=== PATIENT | female | born 1995 | race Caucasian/White ===

== ENCOUNTER 2017-01-20 05:38 | Inpatient (IN) | payer MEDICARE, MEDICAID ==
[2017-01-20] MEDS ORDERED: Acetaminophen TAB* 325 MG PO ONE (06:47)
[2017-01-20 06:52] LABS: Hematocrit 45 % (35-47); Hemoglobin 15.2 g/dl (12.0-16.0); Mean Corpuscular HGB Conc 34 g/dl (31-36); Mean Corpuscular Hemoglobin 33 pg (27-31); Mean Corpuscular Volume 97 fL (80-97); Mean Platelet Volume 8 um3 (7.4-10.4); Red Cell Distribution Width 14 % (10.5-15); White Blood Count 10.6 10^3/ul (3.5-10.8)
--- NOTE | 2017-01-20 06:52 | ED ---
collin Chin Timothy, scribed for Jeremy Ayala MD on 01/20/17 at 0646 . Syncope/Near Syncope - HPI Summary HPI Summary: Marissa Higgins is a 21 yo female presenting to [facility] with 30 second episodes of falls x 5, nausea/vomiting, and struck head per her mother at 0215. Pt's mother describes possible absence seizures with fever. Pt has a Hx of fainting episodes , most recently 1.5 years ago. Pt is not in any current pain. Her MHx includes hypothyroidism, GERD, catatonia, insomnia, downs syndrome, tetrology of Fallot, heart surgs, ENT surgs, hearing aids, glasses, dyskinesia. Her PCP is Dr. Aguilar in [place], [place]. - History Of Current Complaint Chief Complaint: EDGeneral Time Seen by Provider: 01/20/17 06:18 Hx Obtained From: Patient Onset/Duration: Sudden Onset, Lasting Hours Timing: Intermittent Episode Lasting - 30 seconds Context: Witnessed Activity At Onset: At Rest Associated Head Trauma: No Aggravating Factor(s): Nothing Alleviating Factor(s): Nothing Associated Signs And Symptoms: Head Trauma (Recent), Vomiting - Allergies/Home Medications Allergies/Adverse Reactions: Allergies Allergy/AdvReac Type Severity Reaction Status Date / Time Erythromycin [From Pediazole] Allergy Unknown Verified 01/20/17 05:59 Reaction Details Sulfisoxazole Allergy Unknown Verified 01/20/17 05:59 [From Pediazole] Reaction Details Home Medications: Home Medications Aripiprazole 2 mg PO DAILY 01/24/17 [History Confirmed 01/24/17] Fluticasone Propionate (Nasal) 50 mcg BOTH NARES DAILY 01/24/17 [History Confirmed 01/24/17] Levothyroxine Sodium 100 mcg PO DAILY 01/24/17 [History Confirmed 01/24/17] Melatonin (NF) 3 mg PO BEDTIME 01/24/17 [History Confirmed 01/24/17] Omeprazole CAP* 20 mg PO BID 01/24/17 [History Confirmed 01/24/17] Trazodone HCl 100 mg PO BEDTIME 01/24/17 [History Confirmed 01/24/17] Vitamin D TAB* 2,000 units PO DAILY 01/24/17 [History Confirmed 01/24/17] PMH/Surg Hx/FS Hx/Imm Hx Endocrine/Hematology History: Reports: Hx Thyroid Disease - hypo GI History: Reports: Hx Gastroesophageal Reflux Disease Infectious Disease History: Yes Infectious Disease History: Denies: Traveled Outside the [place] in Last 30 Days - Additional Comments History Additional Comments: catatonia, insomnia, downs syndrome, tetrology of fallot Review of Systems Positive: Fever Eyes: Negative ENT: Negative Cardiovascular: Negative Respiratory: Negative Positive: Vomiting, Nausea Genitourinary: Negative Positive: Other - head trauma Skin: Negative Positive: Syncope Psychological: Normal All Other Systems Reviewed And Are Negative: Yes Physical Exam Triage Information Reviewed: Yes Vital Signs On Initial Exam: Initial Vitals Temp Pulse Resp BP Pulse Ox 102 F 108 20 87/51 96 01/20/17 06:00 01/20/17 06:00 01/20/17 06:00 01/20/17 06:00 01/20/17 06:00 Vital Signs Reviewed: Yes Appearance: Positive: Well-Appearing, No Pain Distress Skin: Positive: Warm Head/Face: Positive: Normal Head/Face Inspection Eyes: Positive: EOMI, FAY Neck: Positive: Supple Respiratory/Lung Sounds: Positive: Breath Sounds Present Cardiovascular: Positive: RRR Abdomen Description: Positive: Nontender, Soft Bowel Sounds: Positive: Present Musculoskeletal: Positive: Strength/ROM Intact Neurological: Positive: Sensory/Motor Intact Psychiatric: Positive: Affect/Mood Appropriate Diagnostics - Vital Signs Vital Signs Temp Pulse Resp BP Pulse Ox 01/20/17 06:00 102 F 108 20 87/51 96 - Laboratory Result Diagrams: 01/24/17 10:09 01/24/17 10:09 Lab Statement: Any lab studies that have been ordered have been reviewed, and results considered in the medical decision making process. - EKG 0600 Cardiac Rate: NL EKG Rhythm: Sinus Rhythm EKG Interpretation: NSR @ 102 BPM. RBBB. Course/Dx Assessment/Plan: Marissa Higgins is a 21 yo female suffering from 5 30 second syncopal episodes with fever, falls, nausea, and vomiting since 214 this morning. She will be signed out to Dr. Baca for further Tx. - Diagnoses Provider Diagnoses: Community acquired pneumonia, Syncope, Hypoxemia, PNEUMONIA,HYPOTENSION - Physician Notifications Instructed by Provider To: Admit As Inpatient Discharge - Discharge Plan Condition: Fair Disposition: ADMITTED TO [facility] Discharge Disposition Comment: sign out to Dr. Baca The documentation as recorded by the scribcollin hernandez Timothy accurately reflects the service I personally performed and the decisions made by me, Jeremy Ayala MD.
[2017-01-20 07:09] LABS: Albumin 3.8 g/dL (3.2-5.2); BUN/Creatinine Ratio 24.2 (8-20); Calcium 8.7 mg/dL (8.6-10.3); EGFR African American 89.4 (>60); EGFR Non-African American 69.5 (>60); Magnesium 1.7 mg/dL (1.9-2.7); Potassium 3.6 mmol/L (3.5-5.0); Total Bilirubin 0.7 mg/dL (0.2-1.0); Total Protein 7.8 g/dL (6.4-8.9)
[2017-01-20 07:18] LABS: TSH (Thyroid Stimulating Horm) 10.02 mcIU/mL (0.34-5.60)
[2017-01-20] MEDS ORDERED: NS 0.9% 1000 ML* 1,000 ML IV ONE ×2 (07:29)
[2017-01-20] MEDS ORDERED: Piperac/Tazob 3.375 gm in NS* 3.375 GM/100 ML BAG IVPB ONE ×2 (07:29→07:35)
[2017-01-20] MEDS ORDERED: cefTRIAXone(*) 1 GM in NS 0.9% 50 ML* 50 ML IVPB ONE (07:33)
[2017-01-20] MEDS ORDERED: Albuterol 2.5 MG/3 ML NEB.SOL* (0.083%) INH ONE (07:55)
[2017-01-20] MEDS ORDERED: Acetaminophen TAB* 325 MG PO PRN (07:57)
[2017-01-20] MEDS ORDERED: Enoxaparin(*) 40 MG/0.4 ML SYR SUBCUT SCH (08:00)
--- NOTE | 2017-01-20 08:15 | RAD ---
HISTORY: Syncope, history of tetralogy of Fallot COMPARISONS: None VIEWS: 2: Frontal dual-energy and lateral views of the chest. FINDINGS: CARDIOMEDIASTINAL SILHOUETTE: The pulmonary arterial stent is noted with the history of tetralogy of Fallot. JABIER: The jabier are normal. PLEURA: The costophrenic angles are sharp. No pleural abnormalities are noted. LUNG PARENCHYMA: There is a perihilar pattern of reticular opacification with confluent alveolar opacification in the right lower lung ABDOMEN: The upper abdomen is clear. There is no subphrenic gas. BONES AND SOFT TISSUES: No bone or soft tissue abnormalities are noted. OTHER: None. IMPRESSION: PERIHILAR INTERSTITIAL OPACIFICATION WITH AIRSPACE DISEASE OF THE RIGHT LOWER LUNG SUGGESTIVE OF PNEUMONITIS AND CONSOLIDATION, THOUGH GIVEN THE HISTORY OF NAUSEA, VOMITING AND SEIZURE, ASPIRATION IS ALSO WITHIN THE DIFFERENTIAL
[2017-01-20 08:29] LABS: Free T3 3.2 pg/mL (2.5-3.9)
[2017-01-20 08:30] LABS: Free T4 0.86 ng/dL (0.61-1.12)
[2017-01-20] MEDS: DOXYcycline IV* 100 MG in NS 0.9% 250 ML* 250 ML IVPB ONE ×2 (08:40→08:41)
[2017-01-20 09:26] LABS: Urine Bacteria Absent (Absent); Urine Bilirubin Negative (Negative); Urine Glucose Negative (Negative); Urine Nitrite Negative (Negative)
[2017-01-20] MEDS: LORazepam TAB(*) 1 MG PO SCH ×2 (12:55→20:47)
[2017-01-20] MEDS: Cholecalciferol TAB* 1000 UNITS PO SCH (12:55)
[2017-01-20] MEDS: ARIPiprazole TAB* 2 MG PO SCH (12:55)
[2017-01-20] MEDS: Enoxaparin(*) 40 MG/0.4 ML SYR SUBCUT SCH (12:55)
[2017-01-20] MEDS ORDERED: Ibuprofen TAB* 200 MG PO PRN (13:05)
--- NOTE | 2017-01-20 16:43 | HP ---
ADMISSION HISTORY AND PHYSICAL: DATE OF ADMISSION: 01/19/17 REASON FOR ADMISSION: Presumed pneumonia and severe sepsis. HISTORY OF PRESENT ILLNESS: This patient is a 22-year-old female with Downs syndrome who was brought to the emergency department earlier today because of repeated episodes of falling. In the emergency department, the patient was noted to have a low blood pressure, a serum lactate of 3.7, and a chest x-ray showing a possible pneumonia. The patient was subsequently admitted with a diagnosis of pneumonia and septic shock. According to the patient's parents, the episodes of falling began yesterday and were not orthostatic in nature, and were not associated with any observable seizure activity. The patient also experienced recurrent episodes of vomiting last evening. There was no complaint of sore throat, cough, sputum production, or shortness of breath. PAST MEDICAL HISTORY: The patient has rather involved past medical history, which includes tetralogy of Fallot repair, prosthetic pulmonic valve, hypothyroidism, catatonia, iron deficiency anemia, vitamin D deficiency, and bilateral hearing loss. The patient is from [place], [place], and is followed closely by Dr. Chato Blancas in the [facility] in [place], [place]. (The patient's parents are in [place] visiting their son.). PRIOR SURGERIES: Tetralogy Fallot repair, pulmonary valve replacement, tonsillectomy with adenoidectomy. OUTPATIENT MEDICATIONS: 1. Ativan 2 mg t.i.d. (for catatonia). 2. Levothyroxine 100 mcg daily. 3. Omeprazole 20 mg b.i.d. 4. Vitamin D 2000 units daily. 5. Trazodone 100 mg at bedtime. 6. Abilify 2 mg daily. DRUG ALLERGIES: ERYTHROMYCIN and SULFISOXAZOLE, both with unknown reactions. REVIEW OF SYSTEMS: Not obtainable. PHYSICAL EXAMINATION GENERAL: The patient was alert, and did not appear in any distress. VITAL SIGNS: Temp was 100.3, heart rate 99, O2 sat 100% on nasal O2, blood pressure 94/50. HEENT: Pupils were reactive. Extraocular movements appeared full. There was no facial asymmetry and brief periods of horizontal nystagmus were noted. NECK: Supple. There were no masses. LUNGS: Clear to auscultation. CARDIAC Exam: There was a prominent P2 and a 2/6 early systolic murmur heard throughout the precordium. ABDOMEN: Not distended and nontender. EXTREMITIES: Warm, not cyanotic, and not edematous. ADMISSION LABORATORY DATA: White count was 10.6, hemoglobin 15.2, hematocrit 45 , and platelet count 158. Sodium 138, potassium 3.6, chloride 105, CO2 23, BUN 24, creatinine 0.99, lactic acid 3.7, magnesium 1.7, glucose 81, TSH was 10.02, free T4 0.86, and free T3 3.20. EKG showed a right bundle-branch block, a prolonged QT interval, and a borderline first degree AV block. Chest x-ray showed some peribronchial thickening in the right lower lobe that could represent a bronchopneumonia. There was no alveolar infiltrative pattern. IMPRESSION: Overall clinical picture is not entirely consistent with the diagnosis of community-acquired pneumonia. Chest x-ray does have some suggested changes, but the clinical history is not consistent with pneumonia ( there is no cough, sputum production, or SOB. The major problem appears to be the episodes of falling to the ground and the vomiting. The falling could be a sign of dehydration, but they preceded the episodes of vomiting, and there is no apparent dehydration on the laboratory exam. The adrenal insufficiency is another possibility here as a cause of the lowish blood pressure and recurrent vomiting. Overall, this could represent an acute viral syndrome. MANAGEMENT PLAN: Will treat empirically for community-acquired pneumonia with ceftriaxone. Will also consult Neurology to evaluate episodes of falling ( could these represent absence seizures ?). Will also get an echo of the heart and ask Cardiology to evaluate. I do not feel the patient needs pressors because she is awake and has a adequate urine output. In addition, the mother tells me that the patient normally runs systolic blood pressures of about 100. I have also sent a random cortisol as an initial evaluation for adrenal insufficiency. I spoke with Dr. Blancas by phone and also spoke to the patient's parents. They are aware of our diagnostic suspicions and our management plan. CRITICAL CARE TIME: 60 minutes. [id number] #: [id number] MTDD
--- NOTE | 2017-01-20 17:00 | ECHO ---
Patient: ROBY MONSIVAIS Rec#: [id number] : 1995 Date: 01/20/2017 Age: 21y Height: 142 cm / 55.9 in Weight: 59 kg / 130.0 lbs Sex: F BSA: 1.5 Room#: ED 18 Admit Date#: 01/20/2017 Type: Inpatient Referring: Jeremy Ayala Reading: Alonzo Moraes MD Elementary Spanish Teacher: Amanda Malik RN RDCS Transthoracic Echocardiogram Indication: Syncope BP: 97/54 HR: 108 Rhythm: Tachycardia Findings History: Down syndrome, Tetralogy of Fallot with repair, Kathy Transcatheter Pulmonic Valve, hypothyroidism. This is a LIMITED echo exam. Imaging in the parasternal window was started, but the exam was terminated at the request of the RN due to the patient's need for respiratory care. Dr. Allan felt that the information from Dr. Moraes regarding the inital images was sufficient and more imaging is not needed at this time. Technical Comments: The study quality is fair. Completed at 1400. Left Ventricle: The left ventricular chamber size is decreased. There is no left ventricular hypertrophy. Global left ventricular wall motion and contractility are within normal limits. The estimated ejection fraction is 60-65%. Ventricular septal wall motion has a post-operative appearance. There is a left ventricular septal wall motion abnormality observed, possibly due to the presence of a right bundle branch block. Left Atrium: The left atrial chamber size is normal. Right Ventricle: The right ventricular global systolic function is mildly reduced. Aortic Valve: The aortic valve is trileaflet. Mitral Valve: The mitral valve leaflets are mildly thickened. There is mild to moderate mitral regurgitation. Tricuspid Valve: The tricuspid valve leaflets are normal. There is moderate to severe tricuspid regurgitation. There is evidence of mild to moderate pulmonary hypertension. Pulmonic Valve: A bio-prosthetic pulmonic valve is present. The bio-prosthetic pulmonic valve appears to be functioning normally. Pericardium: There is no significant pericardial effusion. Aorta: There is no dilatation of the ascending aorta. The aortic root is normal in size. Pulmonary Artery: The main pulmonary artery is not well visualized. Conclusions Incomplete Echo due to patient level of illness and needing other care Global left ventricular wall motion and contractility are within normal limits. The estimated ejection fraction is 60-65%. Ventricular septal wall motion has a post-operative appearance. There is a left ventricular septal wall motion abnormality observed, possibly due to the presence of a right bundle branch block. The right ventricular global systolic function is mildly reduced. The aortic valve is trileaflet. There is mild to moderate mitral regurgitation. There is moderate to severe tricuspid regurgitation. There is evidence of mild to moderate pulmonary hypertension. A bio-prosthetic pulmonic valve is present. The bio-prosthetic pulmonic valve appears to be functioning normally. Measurements Name Value Normal Range IVSd (2D) 0.8 cm (0.6 - 1) LVPWd (2D) 0.8 cm (0.6 - 1) LVIDd (2D) 3 cm (3.6 - 5.4) LVIDs (2D) 1.9 cm - LV FS (2D) 37 % (25 - 45) Aortic Annulus 2.1 cm (1.4 - 2.6) Ao root diameter (2D) 2.5 cm (2.1 - 3.5) Ascending Ao 2.4 cm (2.1 - 3.4) LA dimension (AP) 2D 2.8 cm (2.3 - 3.8) Name Value Normal Range TR Vmax 3 m/sec - TR peak gradient 36 mmHg - RAP 8 mmHg - RVSP 44 mmHg - Name Value Normal Range PV Vmax 2.9 m/sec - PV VTI 58.8 cm - PV peak gradient 34.5 mmHg - PV mean gradient 15.9 mmHg -
--- NOTE | 2017-01-20 18:45 | CONS ---
NEUROLOGY CONSULT REPORT: DATE OF CONSULT: 01/20/17 REASON FOR CONSULT: Episodes of loss of consciousness, and evaluation for seizure. REQUESTING PHYSICIAN: Dr. Allan. HISTORY OF PRESENT ILLNESS: The patient is a 21-year-old left-handed female with history of Down's syndrome who was brought in to the hospital after several episodes of passing out. She and her family are form [place] and were visiting here. She was in her hotel room with her parents. At about 2 a.m., her mother heard a thud and then went and saw the patient is on the in the bathroom. By the time she saw her, she was awake and at her baseline. She stated that her head hurts. Her mother helped her to get back toward the bed and before getting to the bed, again she had another fall with loss of consciousness. No shaking, convulsion, or urinary incontinence was seen. She was out for 10 to 15 seconds and then regained consciousness almost immediately with no postictal confusion. She had yet another similar episode before going to bed. She had also some nausea and vomited and also had shivering when she was lying on the bed. Eventually, she was brought to the ED and was admitted because of the above episodes and was suspicious to possibly have pneumonia. The patient has a history of 3 similar episodes in the pat, the first one about 1-1/2 years ago. She was at a restaurant with her father, they were coming out of the restaurant and she was getting her coat on when she suddenly passed out for about 15 to 20 seconds, but regained consciousness with no postictal confusion. A few minutes later, she had another episode of passing out for a few seconds with again no postictal confusion. About a few months later, she had another episode when she was sitting in the dining room with her mother when she gradually leaned to her side and passed out for maybe 10 to 15 seconds. Again, there was no postictal confusion or convulsions. The patient saw a neurologist and they did a regular EEG, which per mother was reported negative. Later, an ambulatory EEG was obtained which showed some epileptiform discharges?, but their neurologist did not feel that she needed to be started on antiepileptic medication as the suspicion for seizures was low. There is no history of seizure risk factors including no history of meningitis, head trauma, febrile seizure or seizure in the family. PAST MEDICAL HISTORY: 1. As mentioned, Down's syndrome. Per mother, about 2 years ago she regressed in functionality and in her language skills, but now gradually has improved albeit still not at how she was a few years ago. 2. Tetralogy of Fallot. PAST SURGICAL HISTORY: 1. Open heart surgery for Tetralogy of Fallot 2. Tricuspid? valve replacement. MEDICATIONS: 1. Acetaminophen p.r.n. 2. Abilify 2 mg p.o. daily. 3. Vitamin D 1000 units daily. 4. Lovenox 40 mg subcutaneous. 5. Levothyroxine 100 mcg p.o. daily. 6. Ativan. 7. Omeprazole. 8. Trazodone 100 mg p.o. at bedtime. ALLERGIES: ERYTHROMYCIN and SULFISOXAZOLE. SOCIAL HISTORY: The patient lives with her parents. She goes to a day program about once or twice a week. REVIEW OF SYSTEMS: Complete review of systems performed and is negative other than what mentioned above. PHYSICAL EXAM: Blood pressure 94/47, temperature 100.3 tympanic, but she had temperature of up to 102 at the time of admission. Respiratory rate is 21 and pulse rate 93 to 100. The patient is slightly drowsy, but awakes with stimulation. She follows simple commands and answers to simple questions appropriately. She has Down's syndrome morphologic features. Pupils are symmetric and reactive to light. Extraocular muscles are intact. However, she has a baseline horizontal nystagmus in both eyes. Strength seems 5/5 antigravity. Sensation is intact to light touch and pinprick as far as the patient cooperates. [id number] is intact. Gait not tested. DIAGNOSTIC STUDIES/LAB DATA: WBC 10.6, hemoglobin 15.2, hematocrit 45, platelets 158. Sodium 138, potassium 3.6, BUN 24, creatinine 0.99, lactic acid 3.7. TSH 10.02. Urine is negative. Serology is negative. ASSESSMENT AND PLAN: A 21-year-old female with history of Down's syndrome with a few episodes of loss of consciousness. The description of the episodes are most compatible with a syncopal episode as they were very brief with regain of consciousness quickly with no postictal confusion, and at times had several of them within a short period of time. I do not have a high suspicion for seizures in this patient. Recommend cardiac evaluation for possible arrhythmia and possibly a Holter monitoring if indicated. She has a regular local special population paraprofessional. I would like to obtain another EEG anyways to look for epileptiform abnormalities, although I do not think it would change the recommendations. [id number]/[facility] #: [id number] MUNIR
[2017-01-20] MEDS: Omeprazole CAP* 20 MG PO SCH (20:47)
--- NOTE | 2017-01-20 21:46 | RAD ---
Indication: Confusion, head injury. CT of the brain was performed without IV contrast. Ventricular structures are midline. No midline shift is noted. Extra-axial spaces are unremarkable. Bilateral basal ganglia calcifications are noted. There is no intracranial mass or hemorrhage noted. Mastoid air cells and paranasal sinuses are otherwise unremarkable. IMPRESSION: Bilateral basal ganglia calcifications with no evidence of intracranial mass or hemorrhage.
--- NOTE | 2017-01-21 00:51 | EEG ---
ELECTROENCEPHALOGRAPHY: DATE OF STUDY: 01/20/17 REQUESTING PHYSICIAN: Dr. Allan. REASON FOR EEG: Episodes of loss of consciousness. BRIEF HISTORY: The patient is a 21-year-old left-handed female with a history of Down syndrome with history of several episodes of loss of consciousness since about one year and a half ago and she had a few of these episodes since 2 a.m. this morning. Reportedly had abnormal EEG in the past during an ambulatory EEG. TECHNICAL DESCRIPTION: This digital EEG was recorded using 21 scalp and ear, and three EKG electrodes. It was reviewed in referential and bipolar montages following reformatting in the 10-20 international electrode placement system. In the most stimulated state, the background consists of a symmetric, poorly sustained but 20-30 microvolts, 8-8.5 Hz posterior dominant rhythm. Faster frequencies including 5-15 microvolts, 18-22 Hz activities seen in the frontal leads. Most of the study is in the sleep state with sleep structures of K- complexes and symmetric sleep spindles. IMPRESSION: This routine EEG in the awake and asleep state is within the range of normal variation. No specific epileptiform discharges or seizures were seen. COMMENT: Lack of epileptiform discharges does not necessarily exclude the clinical diagnosis of epilepsy. Clinical correlation is recommended. [id number] #: [id number] MTDD
[2017-01-21] MEDS: Levothyroxine TAB* 100 MCG TAB PO SCH (05:11)
[2017-01-21 05:48] LABS: Hematocrit 32 % (35-47); Hemoglobin 10.9 g/dl (12.0-16.0); Mean Corpuscular HGB Conc 34 g/dl (31-36); Mean Corpuscular Hemoglobin 33 pg (27-31); Mean Corpuscular Volume 97 fL (80-97); Mean Platelet Volume 8 um3 (7.4-10.4); Red Blood Count 3.34 10^6/ul (4.0-5.4); Red Cell Distribution Width 14 % (10.5-15); White Blood Count 12.9 10^3/ul (3.5-10.8)
[2017-01-21 05:55] LABS: BUN/Creatinine Ratio 21.2 (8-20); Calcium 7.1 mg/dL (8.6-10.3); EGFR African American 106.6 (>60); EGFR Non-African American 82.9 (>60); Potassium 3.5 mmol/L (3.5-5.0)
--- NOTE | 2017-01-21 07:56 | RAD ---
INDICATION: Pneumonia COMPARISON: January 20, 2017 TECHNIQUE: An AP portable view obtained at 0650 hours is submitted. FINDINGS: Bones/Soft Tissues: There are no acute bony findings. There are postoperative changes with a pulmonary arterial stent. Cardiomediastinal: There is interval increase in the size of cardiac silhouette. There is perihilar interstitial change most consistent with vascular congestive findings. Lungs: Diffuse interstitial and alveolar changes most consistent with interstitial edema. Given these diffuse abnormalities, consistent infiltrates are not excluded. Pleura: Suspect small left-sided effusion. Other: None IMPRESSION: POSTOPERATIVE CHANGES CONSISTENT WITH THE HISTORY OF CONGENITAL HEART DISEASE. SUSPECT VASCULAR CONGESTION. RECOMMEND FOLLOW-UP
[2017-01-21] MEDS ORDERED: NS 0.9% 50 ML* 50 ML ONE (09:09)
[2017-01-21] MEDS: ARIPiprazole TAB* 2 MG PO SCH (09:12)
[2017-01-21] MEDS: Omeprazole CAP* 20 MG PO SCH ×2 (09:12→22:33)
[2017-01-21] MEDS: cefTRIAXone VIAL(*) 1,000 MG in NS 0.9% 50 ML* 50 ML IVPB SCH (09:12)
[2017-01-21] MEDS: LORazepam TAB(*) 1 MG PO SCH ×3 (09:12→22:32)
[2017-01-21] MEDS: Cholecalciferol TAB* 1000 UNITS PO SCH (09:12)
--- NOTE | 2017-01-21 12:19 | PN ---
Progress Note - Progress Note Note: CRITICAL CARE MEDICINE Date: 01/21/17 Time: 925 SUBJECTIVE: Patient seen and examined. Mom at bedside. PHYSICAL EXAM: Vital Signs: Reviewed. HR 100. BP ok. RR ~30. Neurologic: awake, communicating. towards baseline per mom. HEENT: pupils equal. downs features. Sclera anicteric. Trachea midline. Cardiovascular: S1 S2, tachy prominent m Respiratory: rales bl; able to produce good phases. Abdomen: Soft, nt. No r/g/r. Extremities: Warm. Access: per LABS: Reviewed. IMAGING: Reviewed. MEDICATIONS: Reviewed. ASSESSMENT: 21 F with h/o down's ToF post surgical correction, with not much history of any lung ailments per mom. Mom does know with the vomiting episodes she had to turn her head to ensure she wasn't choking on the vomit. CXR today, reviewed with mom, with further airspace disease, much a component of fluid but with less lung volume. PLAN: Neurologic: awake, comfortable enough. Cardiovascular: Perfusing. Volume status optimized to a bit overload on interstitially front anyway. See if she can automobilize. Respiratory: Question just aspiration on top of precipitating ailment yet to be identified too. But aspiration now blossom with high fever and cxr changes. Inc HFo2 to dec wob and allow her to autorecover. on abx all the same. IS/Flutter. oob. f/u closely. Gastrointestinal: po diet. Renal/Metabolic: automobilize vs lasix later if needed to mobilize lung water. Infectious Disease: continued abx as is. cx ngtd Hematology: was hemoconc on admission now equilibrated. Endocrine: f/u needs Musculoskeletal: oob. Psych/Social: on outpt meds. d/w pts mother at length and she expressed understanding. Supportive and preventative care as ordered. SUP: ppi VTE prophylaxis: lovenox Disposition: ICU today Code Status: Full Critical Care Time: 35min Chacha Cabrera DO
[2017-01-21] MEDS ORDERED: Furosemide IV* 10 MG/ML 2 ML VIAL (20 MG) IV SLOW PU ONE (14:30)
[2017-01-21] MEDS: Enoxaparin(*) 40 MG/0.4 ML SYR SUBCUT SCH (16:25)
[2017-01-22] MEDS: Levothyroxine TAB* 100 MCG TAB PO SCH (05:59)
[2017-01-22] MEDS: Cholecalciferol TAB* 1000 UNITS PO SCH (08:32)
[2017-01-22] MEDS: Omeprazole CAP* 20 MG PO SCH ×2 (08:32→21:08)
[2017-01-22] MEDS: LORazepam TAB(*) 1 MG PO SCH ×3 (08:32→21:07)
[2017-01-22] MEDS: cefTRIAXone VIAL(*) 1,000 MG in NS 0.9% 50 ML* 50 ML IVPB SCH (08:32)
[2017-01-22] MEDS: ARIPiprazole TAB* 2 MG PO SCH (08:38)
[2017-01-22] MEDS: Potassium Chlor TAB* 20 MEQ TAB.ER PO SCH ×2 (10:54→21:08)
--- NOTE | 2017-01-22 11:51 | PN ---
Progress Note - Progress Note Note: CRITICAL CARE MEDICINE Date: 01/22/17 Time: 930 SUBJECTIVE: Patient seen and examined. Dad at bedside. PHYSICAL EXAM: Vital Signs: Reviewed. HR 80. BP ok. RR ~20. Neurologic: awake, communicating. HEENT: pupils equal. downs features. Sclera anicteric. Trachea midline. Cardiovascular: S1 S2, tachy prominent m Respiratory: more clear and good phases. Abdomen: Soft, nt. No r/g/r. Extremities: Warm. Access: per LABS: Reviewed. IMAGING: Reviewed. MEDICATIONS: Reviewed. ASSESSMENT: 21 F with h/o down's Acute hypoxic resp failure Aspiration pneumonitis Dehydration initially - ?viral gastroenteritis PLAN: Neurologic: awake, comfortable enough. Cardiovascular: Perfusing. Volume status well and able to mobilize fluid. Respiratory: Muich better. see if she can wean off Fo2 today. F/u wob. on short course of abx as much of this doesn't seem to be bacterial in origin. Can consider repeat CXR to help determine if clearance from aspiration or whether to complete abx course. all the same. IS/Flutter. oob. Gastrointestinal: po diet. Renal/Metabolic: automobilize. give K Infectious Disease: continued abx for now. Hematology: stable. Endocrine: did not require steroids. Musculoskeletal: oob. ambulate. Psych/Social: on outpt meds. d/w pts father at length and he expressed understanding. Supportive and preventative care as ordered. SUP: ppi VTE prophylaxis: lovenox Disposition: ICU today and potential floor later today or tomorrow Code Status: Full Critical Care Time: 30min Chacha Cabrera DO
[2017-01-22] MEDS: Enoxaparin(*) 40 MG/0.4 ML SYR SUBCUT SCH (13:20)
[2017-01-22] MEDS: traZODone TAB* 100 MG PO PRN (23:51)
[2017-01-23] MEDS: Levothyroxine TAB* 100 MCG TAB PO SCH (06:26)
--- NOTE | 2017-01-23 08:04 | RAD ---
HISTORY: Follow-up pulmonary edema COMPARISONS: January 21, 2017 VIEWS:1: Single frontal portable view of the chest at 6:15 AM FINDINGS: LINES AND TUBES: None. CARDIOMEDIASTINAL SILHOUETTE: The cardiomediastinal silhouette is stable. A vascular stent is noted overlying the heart PLEURA: The costophrenic angles are sharp. No pleural abnormalities are noted. LUNG PARENCHYMA: There is a diffuse reticular pattern with indistinct pulmonary vessels. There is confluent alveolar opacification of the lung bases bilaterally ABDOMEN: The upper abdomen is clear. There is no subphrenic gas. BONES AND SOFT TISSUES: No bone or soft tissue abnormalities are noted. IMPRESSION: PULMONARY INTERSTITIAL EDEMA WITH BIBASILAR ATELECTASIS VERSUS CONSOLIDATION
[2017-01-23] MEDS ORDERED: Furosemide IV* 10 MG/ML 2 ML VIAL (20 MG) IV SLOW PU ONE (08:33)
[2017-01-23] MEDS: ARIPiprazole TAB* 2 MG PO SCH (09:10)
[2017-01-23] MEDS: Cholecalciferol TAB* 1000 UNITS PO SCH (09:10)
[2017-01-23] MEDS: Potassium Chlor TAB* 20 MEQ TAB.ER PO SCH ×2 (09:11→21:35)
[2017-01-23] MEDS: Omeprazole CAP* 20 MG PO SCH ×2 (09:11→21:34)
[2017-01-23] MEDS: LORazepam TAB(*) 1 MG PO SCH ×3 (09:11→21:34)
[2017-01-23] MEDS: cefTRIAXone VIAL(*) 1,000 MG in NS 0.9% 50 ML* 50 ML IVPB SCH (09:48)
--- NOTE | 2017-01-23 10:49 | PN ---
Progress Note - Progress Note Note: CRITICAL CARE MEDICINE Date: 01/23/17 Time: 855 SUBJECTIVE: Patient seen and examined. Dad at bedside. PHYSICAL EXAM: Vital Signs: Reviewed. HR 70. RR teens. Neurologic: awake, communicating. HEENT: pupils equal. downs features. Sclera anicteric. Trachea midline. Cardiovascular: S1 S2 Respiratory: fairly clear; good phases Abdomen: Soft, nt. No r/g/r. Extremities: Warm. Access: per LABS: Reviewed. IMAGING: Reviewed. MEDICATIONS: Reviewed. ASSESSMENT: 21 F with h/o down's Acute hypoxic resp failure Aspiration pneumonitis Dehydration initially - ?viral gastroenteritis PLAN: Neurologic: awake, comfortable enough. Cardiovascular: Perfusing. Volume status well but mobilize again to prevent any further lung water sequestration and then can hold off. Respiratory: Much better. 2L O2 and weaning. Flutter. oob. ambulate. CXR slow to clear from either viral pattern or just post pneumonitis. Would still complete 7 day course abx for cap. Gastrointestinal: po diet. Renal/Metabolic: bryant. Yany connolly Infectious Disease: 7 day course. Hematology: stable. Endocrine: stable. Musculoskeletal: oob. ambulate. Psych/Social: on outpt meds. d/w pts father at length and he expressed understanding. Supportive and preventative care as ordered. SUP: ppi VTE prophylaxis: lovenox Disposition: floor today. Perhaps another 24-48h to wean off O2 and be stable for travel potentials. Code Status: Full Critical Care Time: 25min FBill Cabrera DO
[2017-01-23] MEDS: Enoxaparin(*) 40 MG/0.4 ML SYR SUBCUT SCH (14:16)
[2017-01-23] MEDS ORDERED: Melatonin (NF) ** ENTER STRENGTH IN LABEL DIRECTIONS PO SCH (21:00)
[2017-01-23] MEDS: traZODone TAB* 100 MG PO PRN (21:35)
[2017-01-23] MEDS: PYRIDOXINE PO SCH (21:37)
[2017-01-23] MEDS: MELATONIN PO SCH (21:37)
[2017-01-24] MEDS ORDERED: diPHENhydraMINE IV* 50 MG/ML 1 ml VIAL (BENADRYL) IV PRN (02:04)
[2017-01-24] MEDS: Levothyroxine TAB* 100 MCG TAB PO SCH (05:56)
[2017-01-24] MEDS: cefTRIAXone VIAL(*) 1,000 MG in NS 0.9% 50 ML* 50 ML IVPB SCH (08:56)
[2017-01-24] MEDS: LORazepam TAB(*) 1 MG PO SCH ×3 (08:58→22:57)
[2017-01-24] MEDS: Omeprazole CAP* 20 MG PO SCH ×2 (08:58→22:58)
[2017-01-24] MEDS: Cholecalciferol TAB* 1000 UNITS PO SCH (08:58)
[2017-01-24] MEDS: ARIPiprazole TAB* 2 MG PO SCH (08:58)
[2017-01-24 10:22] LABS: Hematocrit 33 % (35-47); Hemoglobin 11.5 g/dl (12.0-16.0); Mean Corpuscular HGB Conc 35 g/dl (31-36); Mean Corpuscular Hemoglobin 33 pg (27-31); Mean Corpuscular Volume 95 fL (80-97); Mean Platelet Volume 8 um3 (7.4-10.4); Red Blood Count 3.46 10^6/ul (4.0-5.4); Red Cell Distribution Width 13 % (10.5-15); White Blood Count 6.2 10^3/ul (3.5-10.8)
[2017-01-24 10:49] LABS: BUN/Creatinine Ratio 18.4 (8-20); Calcium 8.6 mg/dL (8.6-10.3); EGFR African American 121.3 (>60); EGFR Non-African American 94.3 (>60); Potassium 4.2 mmol/L (3.5-5.0)
[2017-01-24] MEDS: Enoxaparin(*) 40 MG/0.4 ML SYR SUBCUT SCH (13:22)
--- NOTE | 2017-01-24 16:29 | PN ---
Subjective Date of Service: 01/24/17 Interval History: HOSPITALIST PROGRESS NOTE Patient seen and examined at bedside. She feels well today, offers no complaints. Titrating supplemental O2 down and feels comfortable. Appetite is good, no N/V. Family History: Unchanged from Admission Social History: Unchanged from Admission Past Medical History: Unchanged from Admission Objective Active Medications: Acetaminophen (Tylenol Tab*) 650 mg PO Q6H PRN PRN Reason: PAIN Aripiprazole (Abilify Tab*) 2 mg PO DAILY [facility] Last Admin: 01/24/17 08:58 Dose: 2 mg Cholecalciferol (Vitamin D Tab*) 1,000 units PO DAILY [facility] Last Admin: 01/24/17 08:58 Dose: 1,000 units Diphenhydramine HCl (Benadryl Iv*) 25 mg IV ONCE PRN PRN Reason: INSOMNIA Last Admin: 01/24/17 02:44 Dose: 25 mg Enoxaparin Sodium (Lovenox(*)) 40 mg SUBCUT 1300 [facility] Last Admin: 01/24/17 13:22 Dose: 40 mg Fluticasone Propionate (Flonase Nasal [place] 50mcg*) 2 spray BOTH NARES DAILY [facility] Ceftriaxone Sodium 1,000 mg/ (Sodium Chloride) 50 mls @ 200 mls/hr IVPB Q24H [facility] Last Admin: 01/24/17 08:56 Dose: 200 mls/hr Ibuprofen (Advil Tab*) 200 mg PO Q4H PRN PRN Reason: FEVER Last Admin: 01/20/17 13:11 Dose: 200 mg Levothyroxine Sodium (Synthroid Tab*) 100 mcg PO DAILY@0600 [facility] Last Admin: 01/24/17 05:56 Dose: 100 mcg Lorazepam (Ativan Tab(*)) 3 mg PO TID [facility] Melatonin (Melatonin (Nf)) 2 tab PO BEDTIME [facility] Last Admin: 01/23/17 21:37 Dose: 2 tab Omeprazole (Prilosec Cap*) 20 mg PO BID [facility] Last Admin: 01/24/17 08:58 Dose: 20 mg Trazodone HCl (Desyrel Tab*) 100 mg PO BEDTIME PRN PRN Reason: SLEEP Last Admin: 01/23/17 21:35 Dose: 100 mg Vital Signs 02/24/17 02/24/17 02/24/17 02:44 03:44 04:54 Temperature 97.9 F Pulse Rate 79 Respiratory 18 16 18 Rate Blood Pressure 94/43 (mmHg) O2 Sat by Pulse 97 Oximetry Oxygen Devices in Use Now: None Appearance: Pleasant young lady with Down's facial features, seating up in a chair in NAD. Eyes: No Scleral Icterus Ears/Nose/Mouth/Throat: Mucous Membranes Moist Neck: Trachea Midline Respiratory: Symmetrical Chest Expansion and Respiratory Effort, - - BS+ bilaterally coarse, but no added sounds Cardiovascular: RRR - Normal S1 and S2 Extremities: No Edema Neurological: Alert and Oriented x 3, NL Muscle Strength and Tone Lines/Tubes/Other Access: Clean, Dry and Intact Peripheral IV Nutrition: Taking PO's Result Diagrams: 01/24/17 10:09 01/24/17 10:09 Assess/Plan/Problems-Billing Assessment: Ms. Higgins is a 21yo F with PMH of Down syndrome, Tetralogy of Fallot s/p repair , prosthetic pulmonic valve (biologic), hypothyroidism, visiting from [place], who presented to ED with c/o falls, found to have sepsis secondary to pneumonia. - Patient Problems (1) Acute hypoxemic respiratory failure Comment: - Resolved. - Has not needed supplemental O2 so far today. (2) Pneumonia Comment: - Improving. - Continue Ceftriaxone. (3) Down syndrome Comment: - Continue Abilify, Lorazepam, Trazodone. (4) DVT prophylaxis Comment: - Lovenox. (5) Full code status Status and Disposition: Inpatient. Anticipate d/c in AM. Father updated at bedside.
[2017-01-24] MEDS: Fluticasone NASAL SPRAY 50MCG* 16 gm SPRAY BTL BOTH NARES SCH (19:19)
[2017-01-24] MEDS: PYRIDOXINE PO SCH (22:57)
[2017-01-24] MEDS: MELATONIN PO SCH (22:57)
[2017-01-24] MEDS: traZODone TAB* 100 MG PO PRN (22:58)
[2017-01-25] MEDS: Levothyroxine TAB* 100 MCG TAB PO SCH (07:14)
[2017-01-25] MEDS: Fluticasone NASAL SPRAY 50MCG* 16 gm SPRAY BTL BOTH NARES SCH (08:14)
[2017-01-25] MEDS: Cholecalciferol TAB* 1000 UNITS PO SCH (08:20)
[2017-01-25] MEDS: cefTRIAXone VIAL(*) 1,000 MG in NS 0.9% 50 ML* 50 ML IVPB SCH (08:20)
[2017-01-25] MEDS: LORazepam TAB(*) 1 MG PO SCH (08:20)
[2017-01-25] MEDS: Omeprazole CAP* 20 MG PO SCH (08:20)
[2017-01-25] MEDS: ARIPiprazole TAB* 2 MG PO SCH (08:20)
[2017-01-25 09:12] VITALS: BP 87/51
--- NOTE | 2017-01-26 02:13 | DS ---
CC: Dr. Alfa Aguilar, [facility], [place], [place], phone number [phone]; Dr Bill Blancas, [facility], [place], [place], phone number [phone] DISCHARGE SUMMARY: DATE OF ADMISSION: 01/19/17 DATE OF DISCHARGE: 01/25/17 PRIMARY CARE PROVIDER: Dr. Alfa Aguilar. DISCHARGE DIAGNOSES: 1. Sepsis. 2. Possible viral gastroenteritis. 3. Aspiration pneumonitis. 4. Hypoxemic respiratory failure. 5. Mild leukocytosis. 6. Lactic acidosis. 7. Hypothyroidism. 8. Methicillin-resistant Staphylococcus aureus colonization. SECONDARY DIAGNOSES: 1. Down syndrome. 2. Tetralogy of Fallot, status post repair. 3. Prosthetic pulmonic valve replacement. 4. Catatonia. 5. Iron deficiency anemia. 6. Vitamin D deficiency. 7. Bilateral hearing loss. MEDICATION LIST: 1. Levothyroxine 100 mcg p.o. daily. 2. Aripiprazole 2 mg p.o. daily. 3. Trazodone 100 mg p.o. at bedtime. 4. Vitamin D 2000 units p.o. daily. 5. Omeprazole 20 mg p.o. b.i.d. 6. Melatonin 3 mg p.o. at bedtime. 7. Fluticasone nasal spray 50 mcg to both nares daily. 8. Lorazepam 2 mg, take 2 tablets p.o. t.i.d. for 4 days, then return to her usual dose of 3 tablet s p.o. 3 times a day. New medication: Cefuroxime 250 mg p.o. b.i.d. for three more days. HOSPITAL COURSE: Ms. Higgins is a 21-year-old lady with a past medical history as stated above that is visiting from [place] and presented to the emergency room on January 19 due to repeated episod es of falling. In the emergency room, she was found to be hypotensive, had a lactate of 3.7, and a chest x-ray that showed a possible pneumonia. She had also experienced recurrent episodes of vomiti ng the night prior to admission. She was admitted to the intensive care unit by Dr. Omar Allan under the impression of sepsis second carmelita to possible community-acquired pneumonia versus aspiration as she had had recurrent vomiting. S he was started on antibiotic therapy and IV hydration. A transthoracic echocardiogram showed ejection fraction of 60% to 65%, ventricular septal wall motio n with a postop appearance, left ventricular septal wall motion abnormality observed possibly due to a right bundle branch block, [id number] mitral regurgitation, [id number]-[id number]-rwdash tricuspid re gurgitation, desq-xe-axzwwrle pulmonary hypertension, a bioprosthetic pulmonic valve is present and appears to be functioning normally. Due to her recurrent episodes of fall, the patient was seen in consultation by Neurology (Dr. Xavi sosa). His impression was that her episodes of loss of consciousness could be syncopal episodes, but h e did not have a high suspicion for seizures at that time. EEG was performed and it showed no speci fic epileptiform discharges. CT of the brain without contrast showed bilateral basal ganglia calcif ications, but no evidence of intracranial mass or hemorrhage. The patient initially required supplemental oxygen and her lung infiltrates did become more apparent after she received IV hydration. The patient had progressive improvement and on January 23 was transferred to the medical floor. At that point, she was requiring only 1 L of supplemental oxygen and this was weaned off. She had n o complaints of shortness of breath, cough was resolved. She was able to tolerate diet and on , she was felt to be stable for discharge. Blood cultures were negative. Rapid influenza test was also negative. Her nasal swab was positive for MRSA. The impression is the patient likely had a viral gastroenteritis with recurrent episodes of vomiting , dehydration, possible aspiration with pneumonia. She is medically stable to be discharged home today to follow up with her primary care provider as o utpatient. PHYSICAL EXAMINATION: Vital Signs: Temperature 97.9, heart rate is 86, respiratory rate is 16, oxy gen saturation 97% on room air, blood pressure is 87/51. General: The patient is a pleasant young l morgan, sitting up in bed, in no acute distress. CVS: Normal S1 and S2. Regular rate and rhythm with systolic murmur. Chest: Breath sounds present bilaterally with no added sounds. Abdomen is soft, nontender. Bowel sounds are present. Extremities: No edema. Neuro: She is alert, awake, and diallo ented x3. Able to move all 4 extremities. DIET: Regular diet. ACTIVITIES: As tolerated. DISPOSITION: To home. STATUS WHILE IN THE HOSPITAL: Inpatient. Please keep in mind that this is a summarized version of this patient's complex hospital stay. If y ou need more information, please feel free to call me at or please obtain the full [facility] records. TIME SPENT: Approximately 45 minutes was spent to complete this discharge. [id number]/[facility] #: [id number]
--- NOTE | 2017-03-21 07:55 | ED ---
IRanjith Alok, scribed for Mainor Baca MD on 01/20/17 at 0743 . Progress - Progress Note Progress Note: Pt has been signed out at the shift change and the CXR has been read by the physician as a left lower infiltrate. Re-Evaluation - Re-Evaluation First Eval Re-Evaluation Time: 07:52 Comment: Discussed with parents, 02 SAT decreased to mid 80s despite NC, ask repiratory therapist to come to bedside for treatment and possbile vapotherm. Parents also mention vomiting. Differential includes influenza. Second Eval Re-Evaluation Time: 08:15 Comment: BP decreasing to 78 systolic, fluids are still running and balderrama catheter was discussed with parents Course/Dx - Diagnoses Provider Diagnoses: Community acquired pneumonia, Syncope, Hypoxemia Is Visit Related: No - Provider Notifications Discussed Care Of Patient With: 07:50 - Dr. Laboy (hospitalist). 08:24 dr burt (ICU attending) Time Discussed With Above Provider: 07:50 - Critical Care Time Critical Care Time: 30-74 min - 45 minute The documentation as recorded by the Ranjith shaw Alok accurately reflects the service I personally performed and the decisions made by me, Mainor Baca MD.
== END 2017-01-25 11:35 | disposition home or self-care (01) | DRG 871 ==
LOC: ED 05:38 → ICU 08:35 → UNDODISIN 01-21 15:28 → MED 01-23 09:29
PROVIDERS: ADMIT Internal Medicine Critical Care Medicine; ATTEND Internal Medicine
PROC: 4A00X4Z Measurement of Central Nervous Electrical Activity, External Approach (ICD-10-PCS; principal; 2017-01-20)
DX: A41.9 Sepsis, unspecified organism (principal); J96.01 Acute respiratory failure with hypoxia; J69.0 Pneumonitis due to inhalation of food and vomit; E87.2 Acidosis; F20.2 Catatonic schizophrenia; E03.9 Hypothyroidism, unspecified; K21.9 Gastro-esophageal reflux disease without esophagitis; G47.00 Insomnia, unspecified; Q90.9 Down syndrome, unspecified; Z97.4 Presence of external hearing-aid; Z88.8 Allergy status to other drugs, medicaments and biological substances; Z88.1 Allergy status to other antibiotic agents; I45.10 Unspecified right bundle-branch block; Z95.2 Presence of prosthetic heart valve; H91.93 Unspecified hearing loss, bilateral; I44.0 Atrioventricular block, first degree; E86.0 Dehydration; A08.4 Viral intestinal infection, unspecified; Z22.322 Carrier or suspected carrier of Methicillin resistant Staphylococcus aureus; E55.9 Vitamin D deficiency, unspecified; D50.9 Iron deficiency anemia, unspecified; I27.2 Other secondary pulmonary hypertension; I08.1 Rheumatic disorders of both mitral and tricuspid valves; R55 Syncope and collapse
CPT/HCPCS: 36415; 70450; 71010; 71020; 80048; 80053; 81003; 81015; 82306; 82533; 83605; 83735; 84439; 84443; 84481; 84484; 85025; 85027; 87040; 87502; 87641; 93005; 93306; 94760; 95822; 99285; A9270-GY; J0696; J1200; J1650; J1940; J2543